=== PATIENT | male | born 1970 | race Caucasian/White ===

== ENCOUNTER 2021-05-07 13:33 | Emergency (ER) | payer OTHER, SELFPAY ==
--- NOTE | ~2021-05-07 | CT_ITS ---
EXAMINATION: CT abdomen pelvis w con DATE: 05/07/2021 15:50 INDICATION: Right-sided abdominal pain and flank pain. TECHNIQUE: Computed tomography (CT) of the abdomen and pelvis was performed with 100 mL Omnipaque-350 intravenous contrast. Automated exposure control and iterative reconstruction technique were employe d. The dose-length product was 626.11 mGy-cm. COMPARISON: None FINDINGS: Small linear band of discoid atelectasis/scarring at the posterior sulcus of the right lower lobe. He art size is normal. No pericardial or pleural effusion. A couple hemangiomas which is centrally low a ttenuation and with peripheral discontiguous puddling of avid enhancement isointense to the portal ve in measuring 3.0 cm in the medial aspect of segment 6 of the liver and 1.8 cm in segment 7 of the emily er. A second 1.7 cm hypodense lesion in segment 6 likely represents an additional slower filling graeme ngioma. Finally there is a 6 mm avidly enhancing flash filling hemangioma in segment 2. Spleen and pa ncreas are normal. There are bilateral small adrenal nodules, the larger on the right measuring 1.9 x 1.2 cm which are statistically most likely to represent adenomas. Kidneys enhance symmetrically with no hydronephrosis. 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 2-3 mm nonobstru cting stone at the right ureterovesicular junction. Bladder is otherwise normal. Prostatomegaly. Mild bilateral perinephric stranding. Bowels including the appendix are normal. There is approximately 2. 2 x 1.3 cm nodular density with ill-defined margins in the mesenteric fat which demonstrates low flui d attenuation which could represent an indeterminant cystic lesion or a focus of inflammation of the mesenteric fat. No free intraperitoneal gas or fluid. No pathologically enlarged abdominal or pelvic lymphadenopathy. Minimal to mild scattered less dense sclerotic lesion at the intertrochanteric right femur degenerative skeletal changes. Small bone islands at the bilateral femoral heads. IMPRESSION: 1. Question 2 mm nonobstructing stone at the right ureterovesicular junction. 2. 2.2 x 1.3 cm relatively low density nodular lesion in the mesenteric fat which could represent an indeterminate cystic lesion, mildly enlarged lymph node or focus of fat necrosis. Other neoplasm eith er benign or malignant would be unlikely but could consider 3-6 month follow-up CT abdomen. 3. A couple small likely benign adrenal adenomas. Malignancy would be unlikely in the absence of know n history of primary disease. 4. Small sclerotic lesion at the intratrochanteric left femur most likely a bone island but could con jacquard card lacer bone scan for further evaluation particularly if patient has known history of prior malignancy. Reviewed, dictated and finalized at location A. IMPRESSION: 1. Question 2 mm nonobstructing stone at the right ureterovesicular junction. 2. 2.2 x 1.3 cm relatively low density nodular lesion in the mesenteric fat whi ch could represent an indeterminate cystic lesion, mildly enlarged lymph node o r focus of fat necrosis. Other neoplasm either benign or malignant would be unl ikely but could consider 3-6 month follow-up CT abdomen. 3. A couple small likely benign adrenal adenomas. Malignancy would be unlikely in the absence of known history of primary disease. 4. Small sclerotic lesion at the intratrochanteric left femur most likely a bon e island but could consider bone scan for further evaluation particularly if pa vicki has known history of prior malignancy.
[2021-05-07 14:06] VITALS: BP 131/104; PULSE 99; RESP 18; TEMP 37; O2SAT 99
[2021-05-07 14:20] LABS: Basophils Absolute Auto 0.1 K/mm3 (0.0-0.1); Basophils Percent Auto 0.6 % (0.2-1.2); Eosinophils Absolute Auto 0.1 K/mm3 (0-0.3); Hematocrit 43.9 % (42.0-52.0); Hemoglobin 14.9 g/dL (14.0-18.0); Immature Granulocyte Absolute 0.03 K/mm3 (0.00-0.031); Immature Granulocyte Percent A 0.3 % (0-0.5); Lymphocytes Absolute Auto 3.12 K/mm3 (0.9-3.2); Lymphocytes Percent Auto 34.9 % (18.3-44.2); Mean Corpuscular HGB Conc 33.9 g/dl (32-36); Mean Corpuscular Hemoglobin 29.6 pg (26-34); Mean Corpuscular Volume 87.3 fl (80-100); Mean Platelet Volume 11.9 fl (7.4-10.4); Monocytes Absolute Auto 0.6 K/mm3 (0.1-0.6); Monocytes Percent Auto 6.6 % (2.6-8.5); Neutrophils Absolute Auto 5.1 K/mm3 (1.3-6.7); Neutrophils Percent Auto 56.6 % (45.5-73.1); Platelet Count Result 269 k/mm3 (150-375); Red Blood Count 5.03 M/mm3 (4.6-6.20); Red Cell Distribution Width 12.7 % (11.5-14.5); White Blood Count 8.9 K/mm3 (4.5-10.0)
[2021-05-07 14:44] LABS: Add Urine Microscopic? YES; Appearance Urine Clear (Clear); Bilirubin Urine Negative (Negative); Blood Urine Negative (Negative); Color Urine Yellow (Yellow); Glucose Urine UA 3+ mg/dL (Negative); Ketones Urine Negative (Negative); Leukocyte Esterase Ur Negative LEU/UL (Negative); Mucus Urine Rare /lpf; Nitrate Urine Negative (Negative); Protein Urine Negative (Negative); RBC Urine 0-2 /hpf (0-2); Specific Grav Ur 1.018 (1.001-1.035); Urobilinogen Urine Negative mg/dL (<2.0); WBC Urine 0-3 /hpf
[2021-05-07 15:24] LABS: Anion Gap 12 mmol/L (8-16); Blood Urea Nitrogen 13 mg/dL (9-20); Calcium 9.7 mg/dL (8.4-10.2); Carbon Dioxide 25 mmol/L (22-30); Chloride 102 mmol/L (98-107); Estimated CRCL calculation 90 ml/min; Estimated Glomerular Filt Rate > 60; Glucose 225 mg/dL (75-110); Potassium 4.2 mmol/L (3.4-5.0); Sodium 139 mmol/L (137-145)
[2021-05-07] MEDS: SODIUM CHLORIDE 0.9% IV 1,000 ML 999 ML IV CONT (15:30)
[2021-05-07 15:54] LABS: Lipase 113 U/L (23-300)
--- NOTE | 2021-05-07 17:21 | ED.GENADULT ---
HPI - General Adult General Chief complaint: Abdominal Pain Stated complaint: right flank pain Time Seen by Provider: 05/07/21 15:07 Source: patient Mode of arrival: ambulatory Limitations: no limitations History of Present Illness HPI narrative: Patient is a 51 year old male who presents complaining of right flank pain x 2 weeks. He reports pain is intermittent with increasing pain over the past 2 days. Patient denies urinary complaints. He denies nausea or other complaints. Reports discussing with PCP office and was diagnosed with musculoskeletal pain. MD complaint: right flank pain Related Data Allergies Allergy/AdvReac Type Severity Reaction Status Date / Time No Known Allergies Allergy Verified 05/07/21 14:43 Review of Systems Review of Systems: Narrative: CONSTITUTIONAL: Denies fever, chills, or sweats. EYES: Denies visual changes, redness, or discharge. ENT: Denies rhinorrhea, congestion, sore throat, or otalgia. CARDIOVASCULAR: Denies chest pain, palpitations, or edema. RESPIRATORY: Denies cough or dyspnea. GASTROINTESTINAL: Denies abdominal pain, nausea, vomiting, or diarrhea. GENITOURINARY: Reports right flank pain SKIN: Denies rash or itching. MUSCULOSKELETAL: Denies back pain, joint pain, or myalgia. NEUROLOGIC: Denies headache, numbness, dizziness, or weakness. PSYCHIATRIC: Denies anxiety or depression. [facility] Past Medical History Medical History Diabetes GERD (gastroesophageal reflux disease) Gout Hypercholesterolemia Surgical History Surgical History History of orthopedic surgery Hx of tonsillectomy Social History Social History (Updated 05/07/21 @ 17:27 by ABY Stubbs) Smoking status: Former smoker Alcohol intake: current Alcohol use details: occasional Substance use: never Comments At the time of signature, I have reviewed and agree with nursing past medical, surgical, social, and family history unless otherwise noted. Please see nursing chart for further information. There is no relevant family history pertinent to the presenting complaint. Exam Narrative: Exam Narrative: GENERAL: Well-appearing, well-nourished, and in no acute distress. HEAD: Normocephalic, atraumatic. EYES: EOMI. No redness or drainage. Conjunctiva are normal. ENT: Mucous membranes pink and moist. CHEST: No respiratory distress. Clear to auscultation. HEART: Regular rate and rhythm. GI: Soft, nontender without rebound, or guarding. No distention. Bowel sounds normal in all quadrants. : Right CVA tenderness with palpation MUSCULOSKELETAL: No bony tenderness. EXTREMITIES: Normal range of motion. SKIN: Warm, dry, no rash. NEURO: No focal deficits. Alert and oriented x3. Gait steady. PSYCH: Normal affect. No signs of depression or anxiety. Course Vital Signs Vital signs: Vital Signs Temperature 37.0 C 05/07/21 14:06 Pulse Rate 99 05/07/21 14:06 Respiratory Rate 18 05/07/21 14:06 Blood Pressure 131/104 H 05/07/21 14:06 Pulse Oximetry 99 05/07/21 14:06 Temperature 37.0 C 05/07/21 14:06 Pulse Rate 90 05/07/21 17:48 Respiratory Rate 20 05/07/21 17:48 Blood Pressure 128/82 05/07/21 17:48 Pulse Oximetry 100 05/07/21 17:48 Reviewed. Patient has been instructed to follow-up with his PCP regarding his blood pressure. Medical Decision Making MDM Narrative Medical decision making narrative: Patient appears to have a 2 mm nonobstructing stone. Discussed with patient pain management. Discussed with patient results of CT and have follow-up as needed with PCP. Patient is aware and agrees. Patient is stable for discharge home with outpatient follow-up as discussed. Patient agrees with plan of care. Differential Diagnosis Differential Diagnosis: Pyelonephritis, kidney stone, cholecystitis, gastroenteritis Medical Records Medical records reviewed: Yes
[2021-05-07 17:48] VITALS: BP 128/82; PULSE 90; RESP 20; O2SAT 100
== END 2021-05-07 17:51 | disposition home or self-care (01) ==
PROVIDERS: Emergency Medicine; Emergency Provider Nurse Practitioner; PCP Family Medicine
DX: N20.0 Calculus of kidney (principal); E11.9 Type 2 diabetes mellitus without complications; K21.9 Gastro-esophageal reflux disease without esophagitis; E78.00 Pure hypercholesterolemia, unspecified; Z87.891 Personal history of nicotine dependence; R93.5 Abnormal findings on diagnostic imaging of other abdominal regions, including retroperitoneum; D35.02 Benign neoplasm of left adrenal gland; D35.01 Benign neoplasm of right adrenal gland; M89.9 Disorder of bone, unspecified
CPT/HCPCS: 36415; 74177; 80048; 81001; 83690; 85025; 96360; 99284; J7030; Q9967